=== PATIENT | male | born 1985 | race American Indian/Alaskan Native ===

== ENCOUNTER 2021-04-15 12:38 | Emergency (ER) | payer SELFPAY ==
--- NOTE | 2021-04-15 14:15 | Emergency Department Report ---
ED ENT HPI - General Stated complaint: SWOLLEN GUMS Time Seen by Provider: 04/15/21 13:16 Source: patient Mode of arrival: Ambulatory Limitations: No Limitations - History of Present Illness Initial comments: SEE DOWN TIME FORM HERE FOR LEFT LOWER WISDOM AREA PAIN VS NORMAL PER RN MANUAL DOCUMENTATION NO FEVER NO CHILLS TAKING PO complaint: tooth pain -: Gradual, days(s) Severity: mild Quality: aching Consistency: constant Improves with: none ED Dental HPI - General Stated complaint: SWOLLEN GUMS Time Seen by Provider: 04/15/21 13:16 ED Review of Systems ROS: Stated complaint: SWOLLEN GUMS Other details as noted in HPI Comment: All other systems reviewed and negative ED Past Medical Hx - Past Medical History Previous Medical History?: No - Surgical History Past Surgical History?: No - Family History Family history: no significant - Social History Smoking Status: Never Smoker Substance Use Type: None ED Physical Exam - General General appearance: alert, in no apparent distress - Head Head exam: Present: atraumatic, normocephalic - Eye Eye exam: Present: normal appearance - ENT ENT exam: Present: mucous membranes moist - Expanded ENT Exam Expanded Mouth exam: Present: normal external inspection. Absent: drooling, trismus, muffled voice 1 - Other (impacted wisdom tooth) - Neck Neck exam: Present: normal inspection - Respiratory Respiratory exam: Present: normal lung sounds bilaterally. Absent: respiratory distress - Cardiovascular Cardiovascular Exam: Present: regular rate, normal rhythm. Absent: systolic murmur, diastolic murmur, rubs, gallop - GI/Abdominal GI/Abdominal exam: Present: soft, normal bowel sounds - Rectal Rectal exam: Present: deferred - Extremities Exam Extremities exam: Present: normal inspection - Back Exam Back exam: Present: normal inspection - Neurological Exam Neurological exam: Present: alert, oriented X3 - Psychiatric Psychiatric exam: Present: normal affect, normal mood - Skin Skin exam: Present: warm, dry, intact, normal color. Absent: rash ED Medical Decision Making - Medical Decision Making dc home with rx for amox will see dmd in follow up SEE DOWN TIME RECORDS - Differential Diagnosis dental pain Critical care attestation.: If time is entered above; I have spent that time in minutes in the direct care of this critically ill patient, excluding procedure time. ED Disposition Clinical Impression: Pain, dental Disposition: 01 HOME / SELF CARE / HOMELESS Is pt being admited?: No Does the pt Need Aspirin: No Condition: Stable Time of Disposition: 14:14
== END 2021-04-15 14:12 | disposition home or self-care (01) ==
LOC: ED 12:38
DX: K08.89 Other specified disorders of teeth and supporting structures (principal)
CPT/HCPCS: 99281